=== PATIENT | female | born 1960 | race Caucasian/White ===

== ENCOUNTER 2016-11-17 07:58 | Emergency (ER) | payer SELFPAY ==
[~2016-11-17] VITALS: Ht 170.2 cm; Wt 72.6 kg
[2016-11-17 08:30] VITALS: BP 142/105
--- NOTE | 2016-11-17 08:32 | NUR ---
PT TAKEN TO BED 5
--- NOTE | 2016-11-17 08:33 | NUR ---
55 F BIB SELF C/O BEGAN TAKING CLINDAMYCIN PO FOR ORAL ABSCESS ON Sunday11/12/16, GENERALIZED RASH, EDEMA, AND REDNESS STARTING SUNDAY. UNRELIEVED BY BENADRYL. PT DENIES N/V/D; AAOX4 WITH EVEN AND STEADY GAIT; LUNGS CLEAR BL; HR EVEN AND REGULAR; PT DENIES ANY FEVER, CP, SOB, OR COUGH AT THIS TIME; PATIENT STATES PAIN OF4/10 AT THIS TIME; VSS; PATIENT POSITIONED FOR COMFORT; HOB ELEVATED; BEDRAILS UP X2; BED DOWN. ER MD MADE AWARE OF PT STATUS.
--- NOTE | 2016-11-17 08:35 | NUR ---
DR KOHLI EVALUATING PT AT BEDSIDE
[2016-11-17] MEDS ORDERED: predniSONE 20 MG TAB PO ONE (08:40)
[2016-11-17] MEDS ORDERED: FAMOTIDINE 20 MG TAB PO ONE (08:40)
[2016-11-17 09:14] VITALS: BP 118/74
--- NOTE | 2016-11-17 09:14 | NUR ---
Patient discharged with v/s stable. Written and verbal after care instructions given and explained. Patient alert, oriented and verbalized understanding of instructions. Ambulatory with steady gait. All questions addressed prior to discharge. ID band removed. Patient advised to follow up with PMD. Rx of PREDNISONE, BENADRYL ALLERGY & PEPCID given. Patient educated on indication of medication including possible reaction and side effects. Opportunity to ask questions provided and answered.
== END 2016-11-17 09:14 | disposition home or self-care (01) ==
LOC: MED 07:58
DX: T36.8X5A Adverse effect of other systemic antibiotics, initial encounter (principal); F17.200 Nicotine dependence, unspecified, uncomplicated; Z71.6 Tobacco abuse counseling; Y92.89 Other specified places as the place of occurrence of the external cause
CPT/HCPCS: 81002; 81025; 99283; J7512

== ENCOUNTER 2021-01-10 08:17 | Emergency (ER) | payer OTHER ==
[~2021-01-10] VITALS: Ht 170.2 cm; Wt 72.6 kg
[2021-01-10 08:23] VITALS: BP 143/86
--- NOTE | 2021-01-10 08:25 | NUR ---
Patient ambulated to bed 08 with steady/even gait.
--- NOTE | 2021-01-10 08:30 | NUR ---
60 y/o F coming in from work with c/o right knee pain. 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 Patient describes pain as sudden onset, 2/10 to right knee, pressure/constant, radiating to right thigh. Pt states worsening pain when standing or bending right knee. Patient denies LOC, head/neck/back pain, abdominal pain, chest pain, N/V, dizziness, vision changes. Pt placed onto curator herbarium; bed locked in lowest position, side rails x 1, call light in reach. PMH/Meds: Denies Sx: Denies Allergies: Clindamycin
--- NOTE | 2021-01-10 08:34 | NUR ---
Adelaida mathew in [facility] - 01/10/21 [facility] [facility] is evaluating patient at bedside.
--- NOTE | 2021-01-10 08:44 | NUR ---
Dr. Gill is evaluating the patient at bedside.
--- NOTE | 2021-01-10 09:15 | NUR ---
Xray at bedside
[2021-01-10] MEDS ORDERED: NAPR-54 PO (09:50)
[2021-01-10 09:56] VITALS: BP 132/81
== END 2021-01-10 09:56 | disposition home or self-care (01) ==
LOC: MED 08:17
DX: M25.561 Pain in right knee (principal); M25.461 Effusion, right knee; W18.09XA Striking against other object with subsequent fall, initial encounter; Y93.89 Activity, other specified; Y92.89 Other specified places as the place of occurrence of the external cause; Y99.8 Other external cause status
CPT/HCPCS: 29505; 73562; 99283